=== PATIENT | male | born 1995 | race Caucasian/White ===

== ENCOUNTER 2018-01-21 19:26 | Emergency (ER) | payer SELFPAY ==
[2018-01-21 19:27] VITALS: BP 137/80; PULSE 111; RESP 16; TEMP 36.9; O2SAT 97; BMI 26.0
--- NOTE | 2018-01-21 19:59 | ED.VISSUMM ---
- ER Visit Summary Date of Service: 01/21/18 Chief Complaint: Feeling lightheaded History of Present Illness: The patient is a 22 M no significant past medical history. States the last several days he has had nausea, vomiting and diarrhea. Today he feels lightheaded but he has been drinking fluids. Denies any fever. No abdominal pain. No dysuria. Physical Examination: Ill-appearing young male. Vital signs are stable afebrile. Heart rate is 111. Initial blood pressure 137/80. H EENT exam mildly driving his membranes. Otherwise unremarkable. Neck nontender no meningismus. No lymphadenopathy. Lungs clear to auscultation bilaterally. Heart tachycardic rate about 110 no murmur. Chest wall nontender. Abdomen soft, nontender, nondistended, normal bowel sounds without peritoneal signs. Moving all 4 extremities. Without edema. No rash. Back exam normal. Nontender. Neurologically is awake and alert with no focal motor or sensory deficits. NIH is 0. Equal symmetrical pocket maker strength. Dorsi plantar flexion intact. Fingertip to nose and heel to cardona all within normal limits. Test Results: None Emergency Department Course and Treatment: Clinically and historically the patient seems mildly dehydrated. He will be treated with a liter of normal saline and reassess. Treatment Plan: Repeat exam at 2200 patient is doing well. Abdomen is benign. He will be discharged home with a Zofran home pack. Disposition: discharge Impression: Acute mild dehydration Nausea, vomiting and diarrhea secondary to viral syndrome This note was generated with [employer] dictation software. It may contain incorrect words, spelling, and punctuation that were not noted in review of the chart prior to signing ED Disposition - Plan for ED Patient: Disposition: Home or Assisted Living Chief Complaint: Dizziness Instructions: ED Dehydration, ED Gastroenteritis Viral Referrals: Care Physician,No Primary [Primary Care Provider] - 3-5 Days if not improving Additional Instructions: Plenty of fluids and rest. Dizziness most likely secondary to mild dehydration. Return if feeling worse or follow-up your primary care physician if not improving in 3-5 days.
--- NOTE | 2018-01-21 20:02 | ED.DCSUM_ITS ---
- ER Visit Summary Date of Service: 01/21/18 Chief Complaint: Feeling lightheaded History of Present Illness: The patient is a 22 M no significant past medical history. States the last several days he has had nausea, vomiting and diarrhea. Today he feels lightheaded but he has been drinking fluids. Denies any fever. No abdominal pain. No dysuria. Physical Examination: Ill-appearing young male. Vital signs are stable afebrile. Heart rate is 111. Initial blood pressure 137/80. H EENT exam mildly driving his membranes. Otherwise unremarkable. Neck nontender no meningismus. No lymphadenopathy. Lungs clear to auscultation bilaterally. Heart tachycardic rate about 110 no murmur. Chest wall nontender. Abdomen soft , nontender, nondistended, normal bowel sounds without peritoneal signs. Moving all 4 extremities. Without edema. No rash. Back exam normal. Nontender. Neurologically is awake and alert with no focal motor or sensory deficits. NIH is 0. Equal symmetrical dormitory counselor strength. Dorsi plantar flexion intact. Fingertip to nose and heel to cardona all within normal limits. Test Results: None Emergency Department Course and Treatment: Clinically and historically the patient seems mildly dehydrated. He will be treated with a liter of normal saline and reassess. Treatment Plan: Repeat exam at 2200 patient is doing well. Abdomen is benign. He will be discharged home with a Zofran home pack. Disposition: discharge Impression: Acute mild dehydration Nausea, vomiting and diarrhea secondary to viral syndrome This note was generated with [employer] dictation software. It may contain incorrect words, spelling, and punctuation that were not noted in review of the chart prior to signing ED Disposition - Plan for ED Patient: Disposition: Home or Assisted Living Chief Complaint: Dizziness Instructions: ED Dehydration, ED Gastroenteritis Viral Referrals: Care Physician,No Primary [Primary Care Provider] - 3-5 Days if not improving Additional Instructions: Plenty of fluids and rest. Dizziness most likely secondary to mild dehydration. Return if feeling worse or follow-up your primary care physician if not improving in 3-5 days.
--- NOTE | 2018-01-21 20:09 | ED.DEP ---
ED Disposition - Plan for ED Patient: Disposition: Home or Assisted Living Chief Complaint: Dizziness Instructions: ED Dehydration, ED Gastroenteritis Viral Referrals: Care Physician,No Primary [Primary Care Provider] - 3-5 Days if not improving Additional Instructions: Plenty of fluids and rest. Dizziness most likely secondary to mild dehydration. Return if feeling worse or follow-up your primary care physician if not improving in 3-5 days.
[2018-01-21] MEDS: 0.9% Normal Saline 1,000 ML 999 ML IV (20:11)
[2018-01-21 21:52] VITALS: BP 103/58; PULSE 77; RESP 16; O2SAT 98
[2018-01-21] MEDS: Ondansetron ODT 4 MG Tablet PO (22:16)
[2018-01-21 22:17] VITALS: BP 125/64; PULSE 92; RESP 17; O2SAT 98
--- NOTE | 2018-01-21 22:17 | ED.RN ---
IV DC'ED, CATHETER INTACT, SMALL GAUZE DRESSING PLACED. DISCHARGE INSTRUCTIONS GIVEN TO AND REVIEWED WITH PATIENT, PATIENT DENIES QUESTIONS OR CONCERNS AND VOICES UNDERSTANDING OF DISCHARGE INSTRUCTIONS. PT AMBULATES OUT OF ROOM WITHOUT DIFFICULTY.
== END 2018-01-21 22:18 | disposition home or self-care (01) ==
PROVIDERS: Emergency Provider Emergency Medicine
DX: E86.0 Dehydration (principal); R11.2 Nausea with vomiting, unspecified; R19.7 Diarrhea, unspecified; B34.9 Viral infection, unspecified
CPT/HCPCS: 96360; 96361; 96365; 96366; 99283; J7030; A4216

== ENCOUNTER 2021-08-22 23:00 | Emergency (ER) | payer MEDICARE, SELFPAY ==
[2021-08-22 23:01] VITALS: BP 136/94; PULSE 96; RESP 18; TEMP 36.8; O2SAT 97; BMI 28.3
--- NOTE | 2021-08-23 00:53 | EX.ED.DYSGE1 ---
HPI History of Present Illness Chief Complaint: Sore Throat Informant: patient Narrative Narrative: Patient presents with concern for Covid. He has had nasal congestion runny nose and a nonproductive cough just today. He has no myalgias fever nausea vomiting or dyspnea. No chest pain. He is overall healthy. He takes no meds. Allergies amoxicillin penicillin. He is not vaccinated. He was concerned because people at work have tested positive for Covid. He states he does not feel sick. This just feels like a very mild cold but he needs to know for work. He did have Covid once back in October. PFSH PFSH Medical History no medical history Home Medications NK 01/21/18 [History Last Taken Unknown] Allergy/AdvReac Type Severity Reaction Status Date / Time amoxicillin [Amoxicillin] Allergy Hives Verified 08/22/21 23:03 Penicillins Allergy Hives Verified 08/22/21 23:03 Social History Smoking Status: Never smoker ROS ROS ED Constitutional Constitutional ED: Denies fever(s) ENT ENT ED: Reports rhinorrhea; Denies sore throat Cardiovascular Cardiovascular: Denies chest pain Respiratory/Chest Respiratory/Chest: Reports cough; Denies dyspnea or sputum Gastrointestinal Gastrointestinal: Denies nausea or vomiting Genitourinary Genitourinary ED: Denies dysuria Musculoskeletal Musculoskeletal: Denies myalgias Integumentary Denies rash Neurologic Neurologic: Denies headache(s) Endocrine Endocrinology: Denies polydipsia or polyuria Allergic/Immunologic Allergic/Immunologic ED: Denies mouth swelling or urticaria EXAM Physical Exam Const Vital Signs: 08/22/21 23:01 Temperature 98.2 F Temperature Source Temporal Pulse Rate 96 Respiratory Rate 18 Blood Pressure 136/94 H Blood Pressure Mean 108 Pulse Ox 97 Oxygen Delivery Method Room Air Positive well nourished and well developed General Appearance ED: well developed and NAD; Negative for cyanotic or diaphoretic HEENT Reports moist mucous membranes Eyes General Eye ED: Negative for pale conjunctiva or scleral icterus Neck no JVD Resp normal respiratory effort and clear to auscultation bilaterally Effort and Inspection: Negative for pain with movement Auscultation: Negative for rales, rhonchi or wheezes Cardio regular rate and regular rhythm GI normal to inspection, nondistended, normoactive bowel sounds and non-tender Palpation: soft Back/Spine no CVA tenderness Extremity General Extremety ED: Negative for edema or tenderness General Extremity: Negative for edema Neuro Sensorium / Orientation: alert Psych mental status grossly normal Skin no rashes or lesions noted MDM MDM MDM Narrative Medical decision making narrative: Patient will have a PCR sent off. He is not dyspneic. His lungs are clear. His oxygen level is normal. I will not do an x-ray. Discharge Plan Triage Chief Complaint: Sore Throat ED Provider: Rickey Lake Dx/Rx/DC Orders Clinical Impression: Close exposure to 2019-nCoV, URI, acute Instructions: Coronavirus Disease 2019 (COVID-19): Caring for Yourself or Others Prescriptions: No Action NK RF: 0 Primary Care Provider: Care Physician,No Primary Referrals: Agnieszka Riggins MD [STAFF PHYSICIAN] - 1 Week if not improving Care Physician,No Primary [Primary Care Provider] - Disposition Disposition: Home, Self Care
== END 2021-08-23 01:22 | disposition home or self-care (01) ==
PROVIDERS: Emergency Provider Emergency Medicine; Visit Provider Emergency Medicine
DX: J06.9 Acute upper respiratory infection, unspecified (principal); Z20.822 Contact with and (suspected) exposure to COVID-19; Z86.16 Personal history of COVID-19
CPT/HCPCS: 87635; 99282; A4216; U0003; U0005

== ENCOUNTER 2021-12-05 13:04 | Emergency (ER) | payer SELFPAY ==
[2021-12-05 13:05] VITALS: BP 136/83; PULSE 118; RESP 16; TEMP 36.1; O2SAT 97; BMI 29.0
--- NOTE | 2021-12-05 13:35 | EX.ED.GENINJ ---
HPI History of Present Illness Chief Complaint: Laceration Informant: patient Narrative Narrative: 26-year-old male presents to the emergency room with injury to his left foot. Patient states he jumped out of a tree barefoot and landed with part of the tree going into the bottom of his foot. He was washed at the scene and bleeding was controlled. Unknown last tetanus. Tetanus Immunization: Unknown PFSH PFSH Home Medications cephalexin 500 mg PO TID #21 cap 12/05/21 [Rx Last Taken Unknown] Allergy/AdvReac Type Severity Reaction Status Date / Time amoxicillin [Amoxicillin] Allergy Hives Verified 12/05/21 13:06 Penicillins Allergy Hives Verified 12/05/21 13:06 Social History (Updated 12/05/21 @ 13:[address] Bradford Rg, DO) current gender identity: male Smoking Status: Never smoker ROS ROS ED Constitutional Constitutional ED: Denies chills, fever(s) or weight loss Eyes Eyes: Denies change in vision or diplopia ENT ENT ED: Denies ear pain, rhinorrhea or sore throat Cardiovascular Cardiovascular: Denies chest pain, orthopnea, palpitations or racing heartbeat Respiratory/Chest Respiratory/Chest: Denies cough, dyspnea or orthopnea Gastrointestinal Gastrointestinal: Denies abdominal pain, diarrhea, nausea or vomiting Genitourinary Genitourinary ED: Denies dysuria, hematuria or urinary frequency Musculoskeletal Musculoskeletal: Denies arthralgias or myalgias Integumentary Reports other Details: See history of present illness ; Denies abscess or rash Neurologic Neurologic: Denies headache(s) or weakness Psychiatric Psychiatric: Denies anxiety, depression, suicidal ideation or suicidal thoughts Endocrine Endocrinology: Denies polydipsia, polyphagia or polyuria Allergic/Immunologic Allergic/Immunologic ED: Denies mouth swelling, tongue swelling or urticaria EXAM Physical Exam Const Vital Signs: 12/05/21 13:05 Temperature 97.0 F L Temperature Source Temporal Pulse Rate 118 H Respiratory Rate 16 Blood Pressure 136/83 H Blood Pressure Mean 100 Pulse Ox 97 Oxygen Delivery Method Room Air Positive well nourished and well developed General Appearance ED: well developed HEENT Reports normocephalic, head/scalp atraumatic, TM's clear and moist mucous membranes atraumatic; Negative for tenderness Tympanic Membrane ED: Yes TM's clear Eyes PERRL and EOMs intact bilaterally Neck no lymphadenopathy, supple and no JVD Resp normal respiratory effort and clear to auscultation bilaterally Cardio regular rate, regular rhythm and no murmurs GI normal to inspection, nondistended, normoactive bowel sounds and non-tender Palpation: soft Back/Spine no CVA tenderness and normal ROM Extremity full ROM General Extremety ED: Negative for edema General Extremity: Negative for edema Neuro oriented x3 and CN's II-XII intact bilaterally Sensorium / Orientation: alert Motor Exam: strength 5/5 throughout Psych mental status grossly normal Mood & Affect: Negative for depressed or tearful Skin no rashes or lesions noted Skin Narrative: On the plantar surface of the left foot there is a 2.5 cm + shaped laceration in between the first and second metatarsal tarsal. No active bleeding. Neurovascular intact. MDM MDM MDM Narrative Medical decision making narrative: Is locally anesthetized using LAT and then later fully anesthetized using 1% lidocaine. Washed with Shur-Clens and explored. No obvious foreign bodies were noted. A total of 4 simple interrupted 4-0 Ethilon sutures were used to close the wound. The patient tolerated procedure well. Wound care discussed with patient stitches will need to be removed in 10 days. I will be placing him on Keflex. Discharge Plan Triage Chief Complaint: Laceration ED Provider: Bradford Rg Dx/Rx/DC Orders Clinical Impression: Laceration of foot Instructions: ED Laceration: All Closures Prescriptions: New cephalexin 500 mg capsule 500 mg PO TID Qty: 21 RF: 0 Primary Care Provider: Care Physician,No Primary Referrals: Sveta Allen MD [STAFF PHYSICIAN] - 10 Day for suture removal Care Physician,No Primary [Primary Care Provider] - Disposition Disposition: Home, Self Care
[2021-12-05] MEDS: Diphth,Pertuss(Acell),Tet Vac 0.5 ML Vial IM (13:48)
[2021-12-05] MEDS: Lidocaine/Epi/Tetracaine 50 ML 1 APPLIC TOPICAL (13:53)
[2021-12-05] MEDS: Lidocaine 1% (20 ml mdv) 20 ML Vial INFILT (14:56)
== END 2021-12-05 14:57 | disposition home or self-care (01) ==
PROVIDERS: Emergency Provider Emergency Medicine; Visit Provider Emergency Medicine
DX: S91.319A Laceration without foreign body, unspecified foot, initial encounter (principal); W17.89XA Other fall from one level to another, initial encounter; Z23 Encounter for immunization
CPT/HCPCS: 12001; 90471; 90715; 99284

== ENCOUNTER 2022-12-22 13:21 | Emergency (ER) | payer BC, SELFPAY ==
[2022-12-22 13:22] VITALS: BP 140/93; PULSE 95; RESP 16; TEMP 36.4; O2SAT 100; BMI 26.7
--- NOTE | 2022-12-22 13:48 | CT_ITS ---
STUDY: CT BRAIN WITHOUT CONTRAST REASON FOR EXAM: Male, 27 years old. Trauma following a fall. RADIATION DOSAGE (If Supplied By Facility): CTDIvol = ( 47.06 ) mGy, DLP = ( 943.26 ) mGycm TECHNIQUE: Transaxial CT imaging of the brain was performed without administration of intravenous contrast material. Individualized dose optimization techniques were used for this CT. COMPARISON: No relevant priors. FINDINGS: Normal soft tissue structures. Normal calvarium. Normal size ventricles and extra-axial spaces for the patient''s age. Normal white matter tracts of the cerebral hemispheres. Normal basal ganglia and thalami. Normal brainstem. Normal cerebellum. There is no intracranial hemorrhage. There are no findings of an acute ischemic infarction. Large mucosal polyp or retention cyst in the left maxillary sinus. CT/Brain/Head without Contrast IMPRESSION: Normal unenhanced CT scan of the brain. Electronically Signed: René Riley MD at 14:20 EDT ,
--- NOTE | 2022-12-22 13:48 | CT_ITS ---
STUDY: CT CERVICAL SPINE WITHOUT CONTRAST REASON FOR EXAM: Male, 27 years old. Cervical trauma due to a fall. RADIATION DOSAGE (If Supplied By Facility): CTDIvol = ( 17.45 ) mGy, DLP = ( 408.23 ) mGycm TECHNIQUE: High resolution transaxial imaging was performed without contrast material. Sagittal and coronal images were reconstructed. Individualized dose optimization techniques were used for this CT. COMPARISON: None FINDINGS: Normal craniovertebral junction. Normal anterior atlantoaxial articulation. Normal odontoid process. Normal cervical lordosis. Normal vertebral bodies and posterior osseous elements. C2-3: Normal endplates. Normal disc height and morphology. Normal central canal and intervertebral neuroforamina. C3-4: Normal endplates. Normal disc height and morphology. Normal central canal and intervertebral neuroforamina. C4-5: Normal endplates. Normal disc height and morphology. Normal central canal and intervertebral neuroforamina. C5-6: Normal endplates. Normal disc height and morphology. Normal central canal and intervertebral neuroforamina. C6-7: Normal endplates. Normal disc height and morphology. Normal central canal and intervertebral neuroforamina. C7-T1: Normal endplates. Normal disc height and morphology. Normal central canal and intervertebral neuroforamina. Normal visualized soft tissue structures. CT/Spine Cervical without Contras IMPRESSION: Normal unenhanced CT examination of the cervical spine. Electronically Signed: René Riley MD at 14:21 EDT ,
--- NOTE | 2022-12-22 15:23 | EX.ED.GENINJ ---
HPI History of Present Illness Chief Complaint: Other, Pain/Inj Informant: patient Narrative Narrative: Patient complains of pain in the posterior occiput and upper neck area. Patient states that he was sleeping in bed last night. But he woke up on the ground. He is not sure if he fell off. He is not sure if his child fell on him. But since he woke up he has had pain in the above area. No numbness tingling weakness. No nausea vomiting. No visual changes. Not on blood thinners. No known history of seizures. Did not bite or hurt his tongue. No incontinence. Motion makes it worse and rest makes it better. PFSH PFSH Medical History no medical history Home Medications cephalexin 500 mg capsule 500 mg PO TID #21 caps 12/05/21 [Rx Last Taken Unknown] naproxen 500 mg tablet 500 mg PO BID #20 tabs 12/22/22 [Rx Last Taken Unknown] Allergy/AdvReac Type Severity Reaction Status Date / Time amoxicillin [Amoxicillin] Allergy Hives Verified 12/22/22 13:24 Penicillins Allergy Hives Verified 12/22/22 13:24 Social History Smoking Status: Never smoker ROS ROS ED ROS Narrative Patient laying in bed. Awake alert no acute distress carries on a normal conversation. HEENT does not show any sign of contusions or abrasions that I am seeing. Tongue is not bitten or lacerated or contused. Eyes show normal range of motion normal pupillary response. In the dark his pupils about 4 mm but they rapidly respond to light equally. Neck does have some diffuse tenderness in the upper third of the neck. No step-off. No visible bruising or swelling. Lungs are clear bilaterally. Heart is regular without murmur gallop or rub. Abdomen is soft completely nontender Extremities show no sign of injury trauma or pain with motion. Neurologically he is awake alert and appropriate. Constitutional Constitutional ED: Denies chills or fever(s) Eyes Eyes: Denies blurry vision or change in vision ENT ENT ED: Denies rhinorrhea Cardiovascular Cardiovascular: Denies chest pain Respiratory/Chest Respiratory/Chest: Denies cough or dyspnea Gastrointestinal Gastrointestinal: Denies nausea or vomiting Musculoskeletal Musculoskeletal: Reports neck pain; Denies arthralgias, back pain or myalgias Integumentary Denies abscess Neurologic Neurologic: Reports headache(s); Denies paresthesias or weakness Hematologic/Lymphatic Hematologic/Lymphatic: Denies easy bleeding or easy bruising Allergic/Immunologic Allergic/Immunologic ED: Denies urticaria EXAM Physical Exam Const Vital Signs: 12/22/22 13:22 12/22/22 13:37 Temperature 97.5 F L Temperature Source Temporal Pulse Rate 95 Respiratory Rate 16 Respiratory Effort Normal Respiratory Pattern Normal Blood Pressure 140/93 H Blood Pressure Mean 108 Pulse Ox 100 Oxygen Delivery Method Room Air MDM MDM MDM Narrative Medical decision making narrative: My independent interpretation of the patient's CT scan of the neck and head showed no acute process. I no sign of fracture. Final reading is similar. Patient will go home. Ice rest nonsteroidals. If he develops worsening pain, new pain, different area of pain, numbness tingling or weakness he should return. I do not think MRI is needed at this time with no current or history of any neurologic symptoms. Radiography Diagnostic Testing: Clinical Impression(s) from Imaging Studies Brain CT 12/22/22 13:48 IMPRESSION: Normal unenhanced CT scan of the brain. Electronically Signed: René Riley MD at 14:20 EDT , Cervical Spine CT 12/22/22 13:48 IMPRESSION: Normal unenhanced CT examination of the cervical spine. Electronically Signed: René Riley MD at 14:21 EDT , Discharge Plan Triage Chief Complaint: Other, Pain/Inj Other Complaint: Headache ED Provider: Rickey Lake Dx/Rx/DC Orders Clinical Impression: Cervical strain, acute, Closed head injury Instructions: ED Neck Sprain or Strain Prescriptions: New naproxen 500 mg tablet 500 mg PO BID Qty: 20 0RF No Action cephalexin 500 mg capsule 500 mg PO TID Qty: 21 0RF Primary Care Provider: Care Physician,No Primary Referrals: Arnav Gonzalez MD [Med Staff - Photographic Process Screen Maker] - 3-5 Days if not improving Care Physician,No Primary [Primary Care Provider] - Disposition Disposition: Home, Self Care
== END 2022-12-22 15:33 | disposition home or self-care (01) ==
PROVIDERS: Emergency Provider Emergency Medicine; Visit Provider Emergency Medicine
DX: S09.90XA Unspecified injury of head, initial encounter (principal); S16.1XXA Strain of muscle, fascia and tendon at neck level, initial encounter; W06.XXXA Fall from bed, initial encounter
CPT/HCPCS: 70450; 72125; 99282

== ENCOUNTER 2023-10-07 17:47 | Emergency (ER) | payer BC, SELFPAY ==
[2023-10-07 17:49] VITALS: BP 124/84; PULSE 138; RESP 18; TEMP 37; O2SAT 98; BMI 27.8
[2023-10-07 17:51] VITALS: BP 124/84; PULSE 138; RESP 18; TEMP 37; O2SAT 98
--- NOTE | 2023-10-07 17:56 | EX.ED.DYSGE1 ---
HPI History of Present Illness Chief Complaint: General Illness Detail of Chief Complaint: Upper respiratory tract symptoms that started last Monday. Informant: patient Onset/Context/Timing Onset: Days Context: Sudden Onset Timing: Continuous and Waxes and wanes Current Severity: Mild Maximum Severity: Moderate Worsened by: Nothing Relieved by: Nothing right Associated Symptoms Associated Symptoms: Sinus pain, rhinorrhea, sore throat, cough and myalgias and arthralgias Narrative Narrative: Patient is a 28-year-old male who presents with respiratory symptoms. had a positive COVID test he had a positive home COVID test. He has not vomited or had diarrhea with this illness. Documented temperature yesterday of 100.5. Not had a fever today. He also needs an excuse for work Prior similar symptoms: No Recent Illness/Hospitalization: No PFSH PFSH Medical History no medical history Home Medications cephalexin 500 mg capsule 500 mg PO TID #21 caps 12/05/21 [Rx Last Taken Unknown] naproxen 500 mg tablet 500 mg PO BID #20 tabs 12/22/22 [Rx Last Taken Unknown] Allergy/AdvReac Type Severity Reaction Status Date / Time amoxicillin [Amoxicillin] Allergy Hives Verified 10/07/23 17:49 Penicillins Allergy Hives Verified 10/07/23 17:49 no surgical history Social History (Updated 10/07/23 @ 17:[address] Roddy Glaser MD) household members: spouse Smoking Status: Never smoker ROS ROS ED Constitutional Constitutional ED: Reports chills, fever(s) and sweats Eyes Eyes: Denies blurry vision, change in vision or diplopia ENT ENT ED: Reports rhinorrhea and sore throat; Denies ear pain Cardiovascular Cardiovascular: Denies chest pain, orthopnea, palpitations or paroxysmal nocturnal dyspnea Respiratory/Chest Respiratory/Chest: Reports cough; Denies dyspnea, dyspnea on exertion, orthopnea, paroxysmal nocturnal dyspnea or sputum Gastrointestinal Gastrointestinal: Denies abdominal pain, diarrhea, nausea or vomiting Genitourinary Genitourinary ED: Denies dysuria, hematuria or urinary frequency Musculoskeletal Musculoskeletal: Reports arthralgias and myalgias Integumentary Denies rash Neurologic Neurologic: Reports headache(s); Denies paresthesias or weakness Hematologic/Lymphatic Hematologic/Lymphatic: Reports systems reviewed and no addt'l complaints, except as documented EXAM Physical Exam Const Vital Signs: 10/07/23 17:49 10/07/23 17:51 Temperature 98.6 F 98.6 F Temperature Source Temporal Temporal Pulse Rate 138 H 138 H Respiratory Rate 18 18 Blood Pressure 124/84 H 124/84 H Blood Pressure Mean 97 97 Pulse Ox 98 98 Oxygen Delivery Method Room Air Room Air Positive well nourished and well developed Constitutional Narrative: Patient appears ill but not toxic. General Appearance ED: well developed, NAD and pallor HEENT Reports moist mucous membranes HEENT Narrative: Posterior pharynx with slight erythema no exudate. Uvula midline. Head is atraumatic normocephalic. Nares positive clear rhinorrhea. Eyes PERRL and EOMs intact bilaterally Eyes Narrative: Conjunctive slightly injected bilaterally consistent with a viral infection. General Eye ED: Negative for pale conjunctiva or scleral icterus Neck no lymphadenopathy, supple and no JVD Neck Narrative: Trachea midline no stridor. Chest Wall inspection of chest normal and palpation of chest normal Resp normal respiratory effort and clear to auscultation bilaterally Cardio regular rhythm, S1 normal heart sound, S2 normal heart sound and no murmurs Rate: tachycardic GI normal to inspection, nondistended, normoactive bowel sounds, non-tender, non-distended and no masses; Negative for hepatosplenomegaly Back/Spine no CVA tenderness Extremity normal to inspection Neuro oriented x3, CN's II-XII intact bilaterally and no sensory deficits noted Sensorium / Orientation: alert Psych mental status grossly normal Skin no rashes or lesions noted, no wounds and skin turgor normal General Skin Exam: pallor; Negative for jaundice MDM MDM MDM Narrative Medical decision making narrative: Patient is Constellation of symptoms consistent with COVID. He is tachycardic. Clinically he is not dry. Patient reports no nausea, vomiting or diarrhea IV fluids were not administered. He was instructed Tylenol or ibuprofen for his aches and pains. He was instructed to encourage fluids. Treatment and Re-Evaluation :: In my professional medical opinion patient does not need any laboratory testing. Discharge Plan Triage Chief Complaint: General Illness ED Provider: Roddy Glaser Dx/Rx/DC Orders Clinical Impression: COVID-19 virus infection, Sinus tachycardia seen on emergency department nurse Instructions: Coronavirus Disease 2019 (COVID-19): Caring for Yourself or Others Prescriptions: No Action cephalexin 500 mg capsule 500 mg PO TID Qty: 21 0RF naproxen 500 mg tablet 500 mg PO BID Qty: 20 0RF Stand Alone Forms: ED Work / School Excuse Primary Care Provider: Care Physician,No Primary Referrals: Care Physician,No Primary [Primary Care Provider] - Disposition Disposition: Home, Self Care
[2023-10-07 18:18] VITALS: BP 124/84; PULSE 125; RESP 18; TEMP 37; O2SAT 99
--- OUTSIDE RECORDS SUMMARY | 2023-10-07 18:18 | XMS RPT_ITS | CCD ---
Author Name Unknown Address [address] [place] [address] Organization [facility] Care Team Providers Care Foreclosure Home Inspector Name Role Phone Louis Boles Unavailable Unavailable Louis Boles Unavailable Unavailable Allergies Allergy Classification Reported Allergen(s) Allergy Type Date of Onset Reaction(s) Facility (2 sources) amoxicillin drug allergy 04-14-2017 [facility] Work Phone: Problems Problem Classification Problem Date Documented Da te Episodic/Chronic Superficial injury; contusion (8 sources) Abrasion, left lower leg, initial encounter; Translations: [Contusion of left lower leg, initial encounter] Onset: 04-14-2017 04-14-2017 Episodic Results Test Name Value Interpretation Reference Range Facil ity Vital Signs Date Time Vital Sign Value Performing Clinician Facility 04-14-2017 16:12-0400 BMI (Body Mass Index) 22.59 kg/m2 [facility] Work Phone: 04-14-2017 16:12-0400 Body Temperature 97.6 [degF] [facility] [employer] [facility] Work Phone: 04-14-2017 16:12-0400 BP Diastolic 80 mm[Hg] [employer] [facility] Work Phone: 04-14-2017 16:12-0400 BP Systolic 112 mm[Hg] [employer] [facility] Work Phone: 04-14-2017 16:12-0400 Height 180.34 cm [facility] Work Phone: 04-14-2017 16:12-0400 Pulse (Heart Rate) 84 /min Louis Boles [place] [facility] Work Phone: 04-14-2017 16:12-0400 Respiratory Rate 16 /min Louis Boles [place] [facility] Work Phone: 04-14-2017 16:12-0400 Weight 73.48 kg Louis Bloes [place] [facility] Work Phone: Plan of Treatment Date Care Activity Detail Author Start: 04-14-2017 End: 04-14-2017 [facility] Work Phone: Progress note 11-17-2020 Note Date & Type Note Facility 11-17-2020 Note HNO ID: [id number] Author: Ana Mcgee Service: ? Author Type: Nurse Practitioner Type: Progress Notes Filed: 11/17/2020 7:16 PM Note Text: Subjective 25 year old male with no PMH presents with concerns for COVID 19 Acute onset upon awakening headache. Endorses as day went on it progressed with sore throat, cough, fever and fatigue. Denies CP. Denies SOB or dyspnea. Denies hemoptysis. Denies abdominal pain. Denies N/V. Endorses that family members have been sick, states those family members tested negative for COVID. States his insisted that he come in today to be tested. The history is provided by the patient. No cryptographic vulnerability analyst was used. URI He complains of cough. There is no chest tightness, difficulty breathing, frequent throat clearing, hemoptysis, hoarse voice, shortness of breath, sputum production or wheezing. This is a new problem. The current episode started today. The problem occurs constantly. The problem has been unchanged. The cough is non-productive. Associated symptoms include a fever, headaches, malaise/fatigue, rhinorrhea and a sore throat. Pertinent negatives include no appetite change, chest pain, dyspnea on exertion, ear congestion, ear pain, heartburn, myalgias, nasal congestion, orthopnea, PND, postnasal drip, sneezing, sweats, trouble swallowing or weight loss. His symptoms are aggravated by nothing. Relieved by: mild relief with Advil There are no known risk factors for lung disease. There is no history of asthma, bronchiectasis, bronchitis, COPD, emphysema or pneumonia. PAST MEDICAL HISTORY Diagnosis Date - Chronic left shoulder pain PAST SURGICAL HISTORY Procedure Laterality Date - TONSILLECTOMY HX ALLERGIES Amoxil [Amoxicillin] and Penicillins MEDICATIONS ibuprofen (ADVIL) 200 mg tablet Take 200 mg by mouth every 6 hours as needed. No family history on file. Social History Tobacco Use - Smoking status: Never Smoker - Smokeless tobacco: Never Used Substance Use Topics - Alcohol use: Not on file - Drug use: Not on file Review of Systems Constitutional: Positive for fever and malaise/fatigue. Negative for appetite change, chills and weight loss. HENT: Positive for congestion, rhinorrhea and sore throat. Negative for ear discharge, ear pain, hearing loss, hoarse voice, nosebleeds, postnasal drip, sinus pain, sneezing and trouble swallowing. Eyes: Negative for pain, discharge and redness. Respiratory: Positive for cough. Negative for hemoptysis, sputum production, shortness of breath and wheezing. Cardiovascular: Negative for chest pain, dyspnea on exertion, palpitations, orthopnea and PND. Gastrointestinal: Negative for abdominal pain, diarrhea, heartburn, nausea and vomiting. Genitourinary: Negative for dysuria, frequency, hematuria and urgency. Musculoskeletal: Negative for back pain, myalgias and neck pain. Skin: Negative for itching and rash. Neurological: Positive for headaches. Negative for dizziness, tingling and tremors. Endo/Heme/Allergies: Negative for environmental allergies and polydipsia. Does not bruise/bleed easily. BP 122/80 Pulse 96 Temp 37.2 ?C (99 ?F) (Tympanic) Resp 18 Wt 96.8 kg (213 lb 6.4 oz) SpO2 97% BMI 29.76 kg/m? Objective Physical Exam Vitals and nursing note reviewed. HENT: Head: Normocephalic and atraumatic. Right Ear: External ear normal. Left Ear: External ear normal. Eyes: General: No scleral icterus. Right eye: No discharge. Left eye: No discharge. Conjunctiva/sclera: Conjunctivae normal. Pupils: Pupils are equal, round, and reactive to light. Neck: Thyroid: No thyromegaly. Trachea: No tracheal deviation. Cardiovascular: Rate and Rhythm: Normal rate and regular rhythm. Heart sounds: Normal heart sounds. No murmur heard. No friction rub. No gallop. Pulmonary: Effort: Pulmonary effort is normal. No respiratory distress. Breath sounds: Normal breath sounds. No wheezing or rales. Chest: Chest wall: No tenderness. Abdominal: General: Bowel sounds are normal. There is no distension. Palpations: Abdomen is soft. Tenderness: There is no abdominal tenderness. Musculoskeletal: General: No tenderness or deformity. Normal range of motion. Cervical back: Normal range of motion and neck supple. Lymphadenopathy: Cervical: No cervical adenopathy. Skin: General: Skin is warm and dry. Coloration: Skin is not pale. Findings: No erythema or rash. Neurological: Mental Status: He is alert and oriented to person, place, and time. Psychiatric: Mood and Affect: Mood and affect normal. Judgment: Judgment normal. ASSESSMENT/PLAN: 1. Suspected COVID-19 virus infection - ICD9: V01.79, ICD10: Z20.822 X 1 day ?? exposure - 2019 CORONAVIRUS Obtained here today Begin self isolation Supportive management. Ana Mcgee APRN.[facility] Summary Purpose Family History No Family History Records Found Advance Directives No Advanced Directives Records Found Additional Source Comments (unrecognized sect ion and content) No Status Records Found INFORMATION SOURCE (unrecogn ized section and content) FOR RECORDS PERTAINING TO PATIENTS WHO ARE OR HAVE BEEN ENROLLED IN A CHEMICAL DEPENDENCY/SUBSTANCEABUSE PROGRAM, SOME INFORMATION MAY BE OMITTED. This clinical summary was aggregated from multiple sources. Caution should be exercised in using it in the provision of clinical care. This summary normalizes information from multiple sources, and as a consequence, information in this document may materially change the coding, format and clinical context of patient data. In addition, data may be omitted in some cases. CLINICAL DECISIONS SHOULD BE BASED ON THE PRIMARY CLINICAL RECORDS. [employer] provides no warranty or guarantee of the accuracy or completeness of information in this document.
== END 2023-10-07 18:18 | disposition home or self-care (01) ==
LOC: ED 18:16
PROVIDERS: Emergency Provider Emergency Medicine; Visit Provider Emergency Medicine
DX: U07.1 COVID-19 (principal); R00.0 Tachycardia, unspecified
CPT/HCPCS: 99282